=== PATIENT | female | born 1975 | race Caucasian/White ===

== ENCOUNTER 2017-07-30 20:47 | Inpatient (IN) | payer OTHER ==
[~2017-07-30] VITALS: Ht 167.6 cm; Wt 92.1 kg
[~2017-07-30 20:47] MED LIST: ANUSOL-HC30 G2 RC; COLACE100 MG PO; NAPROXEN SODIU550 MG PO
[2017-07-30] MEDS ORDERED: PRENATAL 19 TA1 EACH PO (22:14)
[2017-08-02] MEDS ORDERED: MACROBID 100 M100 MG PO (13:55)
[2017-08-02] MEDS ORDERED: NIFE60TA3 PO (13:55)
== END 2017-08-02 14:32 | disposition home or self-care (01) | DRG 778 ==
LOC: OBS/DEL 20:47 → OB/GYN 07-31 09:27 → OBS/DEL 07-31 09:27 → LDR 07-31 09:27 → OB/GYN 08-01 09:54
PROC: 4A1HXCZ Monitoring of Products of Conception, Cardiac Rate, External Approach (ICD-10-PCS; principal; 2017-07-31)
DX: O60.02 Preterm labor without delivery, second trimester (principal); Z3A.25 25 weeks gestation of pregnancy; R82.71 Bacteriuria

== ENCOUNTER 2018-03-08 05:45 | Day surgery (SDC) | payer OTHER ==
[~2018-03-08 05:45] MED LIST changes: +CODE1TAB37 PO; +DIETHYLPROPION75 MG PO; +HAIR, SKIN AND1 EAC4 PO; +M.V.I. ADULT10 ML IV; +MACROBID 100 M100 MG PO; +NIFE60TA3 PO; +PRENATAL 19 TA1 EACH PO; +THYROID PO
[2018-03-08] MEDS ORDERED: KETO10TA2 PO (08:52)
[2018-03-08] MEDS ORDERED: PERCOCET 5-3251 EACH PO (08:52)
== END 2018-03-08 13:10 | disposition home or self-care (01) ==
LOC: CIR.AMB 05:45
DX: Z30.2 Encounter for sterilization (principal)

== ENCOUNTER 2019-11-06 10:53 | Outpatient (CLI) | payer OTHER ==
[~2019-11-06 10:53] MED LIST changes: +KETO10TA2 PO; +PERCOCET 5-3251 EACH PO
== END 2019-11-06 10:56 | disposition home or self-care (01) ==
LOC: TOM 10:53
DX: R91.8 Other nonspecific abnormal finding of lung field (principal)

== ENCOUNTER 2019-11-11 13:56 | Emergency (ER) | payer OTHER ==
[~2019-11-11] VITALS: Ht 152.4 cm; Wt 93.0 kg
== END 2019-11-11 18:07 | disposition home or self-care (01) ==
LOC: ER 13:56
DX: B34.9 Viral infection, unspecified (principal)